=== PATIENT | male | born 1960 | race Caucasian/White ===

== ENCOUNTER 2024-01-22 13:37 | Inpatient (IN) | payer OTHER ==
[~2024-01-22] VITALS: Ht 177.8 cm; Wt 80.3 kg
[2024-01-22 13:39] VITALS: BP_SYST 156; PULSE 76; RESP 17; TEMP 98.1; O2SAT 96
[2024-01-22 14:40] LABS: BASOPHILS # (AUTO) 0.1 K/uL (0.0-0.2); BASOPHILS % (AUTO) 0.7 % (0.0-2.0); EOSINOPHILS # (AUTO) 0.3 K/uL (0.0-0.4); EOSINOPHILS % (AUTO) 2.4 % (0.0-4.0); HEMATOCRIT 30.1 % (36-54); HEMOGLOBIN 10.2 g/dL (14.0-18.0); LYMPHOCYTES # (AUTO) 1.1 K/uL (1.0-5.5); LYMPHOCYTES % (AUTO) 8.1 % (20.5-51.5); MEAN CORPUSCULAR HEMOGLOBIN 34 pg (27-31); MEAN CORPUSCULAR HGB CONC 34 % (32-36); MEAN CORPUSCULAR VOLUME 99 fL (79.0-98.0); MONOCYTES # (AUTO) 1.1 K/uL (0.0-1.0); MONOCYTES % (AUTO) 8.2 % (1.7-9.3); NEUTROPHILS # (AUTO) 10.5 K/uL (1.8-7.7); NEUTROPHILS % (AUTO) 80.6 % (40.0-70.0); PLATELET COUNT (AUTO) 276 K/uL (130-430); RED BLOOD CELL COUNT(AUTO) 3.05 MIL/uL (4.2-6.2); RED CELL DISTRIBUTION WIDTH 15.5 % (9.0-15.0)
[2024-01-22 15:26] LABS: ALANINE AMINOTRANSFERASE 14 U/L (12-78); ALBUMIN 2.7 g/dL (3.4-4.8); ANION GAP 15 (5-15); ASPARTATE AMINOTRANSFERASE 14 U/L (10-37); BILIRUBIN,DIRECT 0.1 mg/dL (0.0-0.3); CALCIUM 8.4 mg/dL (8.4-11.0); CARBON DIOXIDE 24 mmol/L (23-29); CHLORIDE 92 mmol/L (98-107); CREATININE 5.79 mg/dL (0.55-1.30); GFR AFRICAN AMERICAN 13 mL/min (>90); POTASSIUM 3.3 mmol/L (3.5-5.1); SODIUM SERUM 131 mmol/L (136-145); TOTAL BILIRUBIN 0.3 mg/dL (0.0-1.0); TOTAL PROTEIN, SERUM 5.9 g/dL (6.4-8.3); UREA NITROGEN, BLOOD 33 mg/dL (8-21)
[2024-01-22 15:29] LABS: ALCOHOL, BLOOD < 3 mg/dL (<10); GFR NON AFRICAN-AMERICAN 11 mL/min (>90)
[2024-01-22 15:30] LABS: GLUCOSE 516 mg/dL (74-106)
[2024-01-22 15:41] LABS: ACETONE, SERUM NEGATIVE (NEGATIVE)
[2024-01-22] MEDS ORDERED: cefTRIAXone 1 GM VIAL ONE (16:20)
[2024-01-22] MEDS ORDERED: METO10TA8 PO (16:27)
[2024-01-22] MEDS ORDERED: CARV12.548 PO (16:27)
[2024-01-22] MEDS ORDERED: SEMA0.258 SUBCUT (16:27)
[2024-01-22] MEDS ORDERED: SUCR500T PO (16:27)
[2024-01-22] MEDS: cefTRIAXone 1 GM in D5W 50 ML IV ONE (16:30)
[2024-01-22] MEDS: NACL 0.9% 1,000 ML IV ONE (16:31)
[2024-01-22 18:20] VITALS: BP_SYST 183; PULSE 66; RESP 14; TEMP 97.7
[2024-01-22 20:00] VITALS: BP_SYST 173; PULSE 66; PULSE 75; RESP 18; TEMP 97.5; O2SAT 94; O2SAT 99
[2024-01-23] VITALS: BP_SYST 123; PULSE 75; RESP 20; TEMP 98.1
[2024-01-23] MEDS: POTASSIUM CHLORIDE 20 MEQ TABLET.ER PO ONE (00:17)
[2024-01-23] MEDS: INSULIN REGULAR, HUMAN 100 UNITS/ML, 3 ML VIAL (humuLIN R) SUBCUT PRN (00:29)
[2024-01-23 02:10] VITALS: BP_SYST 124; PULSE 74; RESP 19; TEMP 97.3; O2SAT 97
[2024-01-23] MEDS: hydrALAZINE HCL 25 MG TABLET PO PRN (04:19)
[2024-01-23 08:00] VITALS: O2SAT 98
[2024-01-23] MEDS: cefTRIAXone 1 GM in D5W 50 ML IV SCH (16:32)
[2024-01-23 20:00] VITALS: PULSE 71; RESP 19; TEMP 97.6; O2SAT 97
[2024-01-24] VITALS: BP_SYST 131; PULSE 82; RESP 20; TEMP 97.4; O2SAT 98
[2024-01-24 06:02] LABS: BASOPHILS # (AUTO) 0.1 K/uL (0.0-0.2); BASOPHILS % (AUTO) 0.7 % (0.0-2.0); EOSINOPHILS # (AUTO) 0.3 K/uL (0.0-0.4); EOSINOPHILS % (AUTO) 3.3 % (0.0-4.0); HEMOGLOBIN 10.5 g/dL (14.0-18.0); LYMPHOCYTES # (AUTO) 1.7 K/uL (1.0-5.5); MEAN CORPUSCULAR HEMOGLOBIN 32 pg (27-31); MEAN CORPUSCULAR HGB CONC 33 % (32-36); MEAN CORPUSCULAR VOLUME 98 fL (79.0-98.0); MONOCYTES # (AUTO) 0.9 K/uL (0.0-1.0); MONOCYTES % (AUTO) 9.3 % (1.7-9.3); NEUTROPHILS # (AUTO) 6.4 K/uL (1.8-7.7); NEUTROPHILS % (AUTO) 68.7 % (40.0-70.0); PLATELET COUNT (AUTO) 263 K/uL (130-430); RED BLOOD CELL COUNT(AUTO) 3.26 MIL/uL (4.2-6.2); WHITE BLOOD COUNT (AUTO) 9.3 K/uL (4.8-10.8)
[2024-01-24 06:34] LABS: CALCIUM 8.5 mg/dL (8.4-11.0); CREATININE 5.36 mg/dL (0.55-1.30)
[2024-01-24 08:00] VITALS: O2SAT 100
[2024-01-24 08:09] VITALS: BP_SYST 148; PULSE 68; RESP 20; TEMP 97.3; O2SAT 98
[2024-01-24 11:07] VITALS: BP_SYST 126; PULSE 65; RESP 16; TEMP 97.3; O2SAT 100
[2024-01-24 15:08] VITALS: BP_SYST 157; PULSE 69; RESP 16; TEMP 96.9; O2SAT 100
[2024-01-24 20:30] VITALS: BP_SYST 199; PULSE 68; RESP 18; TEMP 98; O2SAT 95
[2024-01-25 00:30] VITALS: BP_SYST 164; PULSE 70; RESP 18; TEMP 98; O2SAT 97
[2024-01-25] MEDS: CARVEDILOL 12.5 MG TABLET (COREG) PO SCH (01:15)
[2024-01-25 06:50] LABS: BASOPHILS # (AUTO) 0.1 K/uL (0.0-0.2); BASOPHILS % (AUTO) 0.6 % (0.0-2.0); EOSINOPHILS # (AUTO) 0.3 K/uL (0.0-0.4); EOSINOPHILS % (AUTO) 3.2 % (0.0-4.0); HEMATOCRIT 32.2 % (36-54); HEMOGLOBIN 10.6 g/dL (14.0-18.0); LYMPHOCYTES # (AUTO) 1.5 K/uL (1.0-5.5); LYMPHOCYTES % (AUTO) 13.9 % (20.5-51.5); MEAN CORPUSCULAR HEMOGLOBIN 33 pg (27-31); MEAN CORPUSCULAR HGB CONC 33 % (32-36); MEAN CORPUSCULAR VOLUME 99 fL (79.0-98.0); MONOCYTES # (AUTO) 1.1 K/uL (0.0-1.0); MONOCYTES % (AUTO) 9.8 % (1.7-9.3); NEUTROPHILS # (AUTO) 7.8 K/uL (1.8-7.7); NEUTROPHILS % (AUTO) 72.5 % (40.0-70.0); PLATELET COUNT (AUTO) 252 K/uL (130-430); RED BLOOD CELL COUNT(AUTO) 3.26 MIL/uL (4.2-6.2); RED CELL DISTRIBUTION WIDTH 15.7 % (9.0-15.0); WHITE BLOOD COUNT (AUTO) 10.7 K/uL (4.8-10.8)
[2024-01-25 07:37] LABS: ANION GAP 14 (5-15); CALCIUM 8.7 mg/dL (8.4-11.0); CARBON DIOXIDE 24 mmol/L (23-29); CHLORIDE 97 mmol/L (98-107); GFR AFRICAN AMERICAN 11 mL/min (>90); GLUCOSE 190 mg/dL (74-106); POTASSIUM 4.3 mmol/L (3.5-5.1); SODIUM SERUM 135 mmol/L (136-145); UREA NITROGEN, BLOOD 46 mg/dL (8-21)
[2024-01-25 08:00] VITALS: BP_SYST 155; PULSE 62; RESP 18; TEMP 97.9; O2SAT 98; O2SAT 99
[2024-01-25 08:06] LABS: GFR NON AFRICAN-AMERICAN 9 mL/min (>90)
[2024-01-25] MEDS ORDERED: NEPH PO (10:44)
[2024-01-25] MEDS ORDERED: CEPH250C PO (10:45)
[2024-01-25] MEDS ORDERED: INSU100V9 SQ (10:47)
[2024-01-25 12:23] VITALS: BP_SYST 163; PULSE 63; RESP 18; TEMP 97.5; O2SAT 100
[2024-01-25 13:00] LABS: BASOPHILS % (AUTO) 0.4 % (0.0-2.0); EOSINOPHILS # (AUTO) 0.3 K/uL (0.0-0.4); EOSINOPHILS % (AUTO) 2.7 % (0.0-4.0); HEMATOCRIT 33.4 % (36-54); HEMOGLOBIN 10.8 g/dL (14.0-18.0); LYMPHOCYTES # (AUTO) 0.8 K/uL (1.0-5.5); LYMPHOCYTES % (AUTO) 6.9 % (20.5-51.5); MEAN CORPUSCULAR HEMOGLOBIN 32 pg (27-31); MEAN CORPUSCULAR HGB CONC 32 % (32-36); MEAN CORPUSCULAR VOLUME 99 fL (79.0-98.0); MONOCYTES % (AUTO) 8.3 % (1.7-9.3); NEUTROPHILS # (AUTO) 9.6 K/uL (1.8-7.7); NEUTROPHILS % (AUTO) 81.7 % (40.0-70.0); PLATELET COUNT (AUTO) 254 K/uL (130-430); RED BLOOD CELL COUNT(AUTO) 3.38 MIL/uL (4.2-6.2); RED CELL DISTRIBUTION WIDTH 15.9 % (9.0-15.0); WHITE BLOOD COUNT (AUTO) 11.7 K/uL (4.8-10.8)
[2024-01-25 13:05] VITALS: BP_SYST 126; PULSE 66; RESP 16; TEMP 98; O2SAT 100
== END 2024-01-25 15:30 | disposition home or self-care (01) | DRG 602 ==
LOC: SED 13:37 → SMU 16:45
PROVIDERS: ADMIT Specialist; ATTEND Specialist
PROC: 5A1D70Z Performance of Urinary Filtration, Intermittent, Less than 6 Hours Per Day (ICD-10-PCS; 2024-01-22)
PROC: 5A1D70Z Performance of Urinary Filtration, Intermittent, Less than 6 Hours Per Day (ICD-10-PCS; principal; 2024-01-25)
DX: L03.114 Cellulitis of left upper limb (principal); N18.6 End stage renal disease; T82.858A Stenosis of other vascular prosthetic devices, implants and grafts, initial encounter; I12.0 Hypertensive chronic kidney disease with stage 5 chronic kidney disease or end stage renal disease; N39.0 Urinary tract infection, site not specified; E11.65 Type 2 diabetes mellitus with hyperglycemia; E11.22 Type 2 diabetes mellitus with diabetic chronic kidney disease; D72.829 Elevated white blood cell count, unspecified; Z99.2 Dependence on renal dialysis; Z79.899 Other long term (current) drug therapy; Z88.8 Allergy status to other drugs, medicaments and biological substances
CPT/HCPCS: 36415; 71045; 80048; 80076; 82009; 82948; 83037; 83605; 84484; 85025; 87040; 87081; 90935; 90937; 93005; 96365; 97116-GP; 97530-GP; 99291; G0482; J0696; J7030; J7050; J7060

== ENCOUNTER 2024-02-03 08:37 | Emergency (ER) | payer OTHER ==
[~2024-02-03] VITALS: Ht 177.8 cm; Wt 80.7 kg
[~2024-02-03 08:37] MED LIST: CARV12.548 PO; CEPH250C PO; INSU100V9 SQ; NEPH PO; SEMA0.258 SUBCUT; SUCR500T PO
[2024-02-03 08:58] VITALS: BP_SYST 184; PULSE 56; RESP 14; TEMP 96.8; O2SAT 96
[2024-02-03] MEDS ORDERED: SEMA0.25 SQ (09:11)
[2024-02-03] MEDS ORDERED: DICL100G59 TP (09:11)
[2024-02-03] MEDS ORDERED: INSU100V SQ (09:11)
[2024-02-03] MEDS ORDERED: [UNRECOGNIZED DRUG - CODE] PO (09:11)
[2024-02-03] MEDS ORDERED: TRAZ50TA54 PO (09:11)
[2024-02-03] MEDS ORDERED: INSU100V9 SQ (09:11)
[2024-02-03] MEDS ORDERED: METO10TA16 PO (09:11)
[2024-02-03] MEDS ORDERED: CINA60TA2 PO (09:11)
[2024-02-03] MEDS ORDERED: SERT-131 PO (09:11)
[2024-02-03] MEDS ORDERED: FURO80TA86 PO (09:11)
[2024-02-03 09:22] LABS: BASOPHILS # (AUTO) 0.1 K/uL (0.0-0.2); BASOPHILS % (AUTO) 0.4 % (0.0-2.0); EOSINOPHILS % (AUTO) 0.3 % (0.0-4.0); HEMATOCRIT 35.6 % (36-54); HEMOGLOBIN 11.4 g/dL (14.0-18.0); LYMPHOCYTES # (AUTO) 1.1 K/uL (1.0-5.5); LYMPHOCYTES % (AUTO) 8.5 % (20.5-51.5); MEAN CORPUSCULAR HEMOGLOBIN 33 pg (27-31); MEAN CORPUSCULAR HGB CONC 32 % (32-36); MEAN CORPUSCULAR VOLUME 102 fL (79.0-98.0); MONOCYTES # (AUTO) 0.8 K/uL (0.0-1.0); MONOCYTES % (AUTO) 6.7 % (1.7-9.3); NEUTROPHILS # (AUTO) 10.7 K/uL (1.8-7.7); NEUTROPHILS % (AUTO) 84.1 % (40.0-70.0); PLATELET COUNT (AUTO) 268 K/uL (130-430); RED BLOOD CELL COUNT(AUTO) 3.48 MIL/uL (4.2-6.2); RED CELL DISTRIBUTION WIDTH 16.7 % (9.0-15.0); WHITE BLOOD COUNT (AUTO) 12.7 K/uL (4.8-10.8)
[2024-02-03] MEDS: DEXTROSE 50% JECT 50 ML DISP.SYRIN IVP ONE (09:23)
[2024-02-03 09:29] LABS: CALCIUM 8.8 mg/dL (8.4-11.0); CREATININE 5.51 mg/dL (0.55-1.30); POTASSIUM 4.8 mmol/L (3.5-5.1)
[2024-02-03] MEDS ORDERED: LABETALOL 100 MG/ 20ML VIAL IVP ONE (10:30)
[2024-02-03] MEDS: hydrALAZINE HCL 20 MG/ML VIAL IVP ONE ×2 (10:48→12:29)
[2024-02-03 12:45] VITALS: BP_SYST 166; PULSE 61; RESP 11; TEMP 97; O2SAT 99
== END 2024-02-03 12:37 ==
LOC: SED 08:37
DX: E11.649 Type 2 diabetes mellitus with hypoglycemia without coma (principal); D72.829 Elevated white blood cell count, unspecified; E11.22 Type 2 diabetes mellitus with diabetic chronic kidney disease; I12.0 Hypertensive chronic kidney disease with stage 5 chronic kidney disease or end stage renal disease; N18.6 End stage renal disease; Z88.6 Allergy status to analgesic agent; Z91.018 Allergy to other foods; Z79.899 Other long term (current) drug therapy; Z79.2 Long term (current) use of antibiotics
CPT/HCPCS: 99283; 96374; 96375; 80048; 85025; 36415; 96376; 82948; J0360; J3490

== ENCOUNTER 2024-02-17 09:00 | Emergency (ER) | payer OTHER ==
[~2024-02-17] VITALS: Ht 177.8 cm; Wt 99.8 kg
[2024-02-17 09:00] VITALS: BP_SYST 192; PULSE 57; RESP 19; TEMP 96; O2SAT 97
[~2024-02-17 09:00] MED LIST changes: +CINA60TA2 PO; +DICL100G59 TP; +FURO80TA86 PO; +INSU100V SQ; +METO10TA16 PO; +SEMA0.25 SQ; +SERT-131 PO; +TRAZ50TA54 PO; +[UNRECOGNIZED DRUG - CODE] PO
[2024-02-17] MEDS ORDERED: VIS25 PO (09:29)
[2024-02-17] MEDS ORDERED: DEXT1TAB48 PO (09:29)
[2024-02-17] MEDS ORDERED: INSU100V44 (09:29)
[2024-02-17] MEDS ORDERED: RENAVITE PEG (09:29)
[2024-02-17] MEDS: DEXTROSE 50% JECT 50 ML DISP.SYRIN IVP ONE (10:10)
[2024-02-17 10:34] LABS: BASOPHILS # (AUTO) 0.1 K/uL (0.0-0.2); BASOPHILS % (AUTO) 0.5 % (0.0-2.0); EOSINOPHILS # (AUTO) 0.1 K/uL (0.0-0.4); EOSINOPHILS % (AUTO) 0.4 % (0.0-4.0); HEMATOCRIT 40.3 % (36-54); HEMOGLOBIN 13.1 g/dL (14.0-18.0); LYMPHOCYTES # (AUTO) 0.5 K/uL (1.0-5.5); LYMPHOCYTES % (AUTO) 3.1 % (20.5-51.5); MEAN CORPUSCULAR HEMOGLOBIN 33 pg (27-31); MEAN CORPUSCULAR HGB CONC 33 % (32-36); MEAN CORPUSCULAR VOLUME 100 fL (79.0-98.0); MONOCYTES # (AUTO) 1.1 K/uL (0.0-1.0); MONOCYTES % (AUTO) 6.6 % (1.7-9.3); NEUTROPHILS # (AUTO) 14.4 K/uL (1.8-7.7); NEUTROPHILS % (AUTO) 89.4 % (40.0-70.0); PLATELET COUNT (AUTO) 207 K/uL (130-430); RED BLOOD CELL COUNT(AUTO) 4.04 MIL/uL (4.2-6.2); RED CELL DISTRIBUTION WIDTH 15.6 % (9.0-15.0); WHITE BLOOD COUNT (AUTO) 16.1 K/uL (4.8-10.8)
[2024-02-17 10:52] LABS: INR 1.1 (0.80-1.20); PROTHROMBIN TIME 11.4 SECS (9.5-12.5)
[2024-02-17 10:56] LABS: ANION GAP 13 (5-15); CALCIUM 8.6 mg/dL (8.4-11.0); CARBON DIOXIDE 28 mmol/L (23-29); CHLORIDE 99 mmol/L (98-107); CREATININE 5.79 mg/dL (0.55-1.30); GFR AFRICAN AMERICAN 13 mL/min (>90); GLUCOSE 194 mg/dL (74-106); POTASSIUM 3.9 mmol/L (3.5-5.1); SODIUM SERUM 140 mmol/L (136-145); UREA NITROGEN, BLOOD 35 mg/dL (8-21)
[2024-02-17 11:19] LABS: GFR NON AFRICAN-AMERICAN 11 mL/min (>90)
[2024-02-17 12:35] VITALS: BP_SYST 168; PULSE 58; RESP 20; TEMP 96.7; O2SAT 97
== END 2024-02-17 12:46 ==
LOC: SED 09:00
DX: E10.649 Type 1 diabetes mellitus with hypoglycemia without coma (principal); R41.82 Altered mental status, unspecified; I13.2 Hypertensive heart and chronic kidney disease with heart failure and with stage 5 chronic kidney disease, or end stage renal disease; E10.22 Type 1 diabetes mellitus with diabetic chronic kidney disease; I50.9 Heart failure, unspecified; N18.6 End stage renal disease; F32.A Depression, unspecified; G89.29 Other chronic pain; Z20.822 Contact with and (suspected) exposure to COVID-19; Z99.2 Dependence on renal dialysis; Z79.4 Long term (current) use of insulin; Z79.899 Other long term (current) drug therapy; Z88.5 Allergy status to narcotic agent
CPT/HCPCS: 36415; 71045; 80048; 82948; 83880; 84484; 85025; 85610; 85730; 93005; 96374; 99291

== ENCOUNTER 2024-02-20 21:13 | Emergency (ER) | payer OTHER ==
[~2024-02-20] VITALS: Ht 177.8 cm; Wt 77.1 kg
[~2024-02-20 21:13] MED LIST changes: -CEPH250C PO; +DEXT1TAB48 PO; -INSU100V SQ; +INSU100V44; -NEPH PO; +RENAVITE PEG; -SEMA0.25 SQ; -SEMA0.258 SUBCUT; -SUCR500T PO; +VIS25 PO
[2024-02-20 21:33] VITALS: BP_SYST 152; PULSE 62; RESP 18; TEMP 98.1; O2SAT 98
[2024-02-20 22:05] LABS: BASOPHILS # (AUTO) 0.1 K/uL (0.0-0.2); BASOPHILS % (AUTO) 0.8 % (0.0-2.0); EOSINOPHILS # (AUTO) 0.3 K/uL (0.0-0.4); EOSINOPHILS % (AUTO) 3.3 % (0.0-4.0); HEMATOCRIT 32.6 % (36-54); LYMPHOCYTES # (AUTO) 1.5 K/uL (1.0-5.5); LYMPHOCYTES % (AUTO) 15.8 % (20.5-51.5); MEAN CORPUSCULAR HEMOGLOBIN 34 pg (27-31); MEAN CORPUSCULAR HGB CONC 34 % (32-36); MEAN CORPUSCULAR VOLUME 100 fL (79.0-98.0); MONOCYTES # (AUTO) 1.1 K/uL (0.0-1.0); MONOCYTES % (AUTO) 11.6 % (1.7-9.3); NEUTROPHILS # (AUTO) 6.5 K/uL (1.8-7.7); NEUTROPHILS % (AUTO) 68.5 % (40.0-70.0); PLATELET COUNT (AUTO) 186 K/uL (130-430); RED BLOOD CELL COUNT(AUTO) 3.28 MIL/uL (4.2-6.2); RED CELL DISTRIBUTION WIDTH 15.3 % (9.0-15.0); WHITE BLOOD COUNT (AUTO) 9.5 K/uL (4.8-10.8)
[2024-02-20 22:29] LABS: ALANINE AMINOTRANSFERASE 39 U/L (12-78); ALBUMIN 3.1 g/dL (3.4-4.8); ANION GAP 6 (5-15); ASPARTATE AMINOTRANSFERASE 20 U/L (10-37); BILIRUBIN,DIRECT 0.1 mg/dL (0.0-0.3); CALCIUM 9.3 mg/dL (8.4-11.0); CARBON DIOXIDE 32 mmol/L (23-29); CHLORIDE 98 mmol/L (98-107); CREATININE 4.89 mg/dL (0.55-1.30); GFR AFRICAN AMERICAN 15 mL/min (>90); POTASSIUM 4.9 mmol/L (3.5-5.1); SODIUM SERUM 136 mmol/L (136-145); TOTAL BILIRUBIN 0.3 mg/dL (0.0-1.0); TOTAL PROTEIN, SERUM 6.1 g/dL (6.4-8.3); UREA NITROGEN, BLOOD 38 mg/dL (8-21)
[2024-02-20 22:30] LABS: GFR NON AFRICAN-AMERICAN 13 mL/min (>90)
[2024-02-20 22:32] LABS: GLUCOSE 460 mg/dL (74-106)
[2024-02-20 23:27] LABS: BILIRUBIN,URINE NEGATIVE (NEGATIVE); CLARITY/URINE CLEAR (CLEAR); COLOR,URINE YELLOW (YELLOW); GLUCOSE,URINE 3+ (NEGATIVE); KETONES,URINE NEGATIVE (NEGATIVE); LEUKOCYTE ESTERASE ,URINE NEGATIVE (NEGATIVE); NITRITE, URINE NEGATIVE (NEGATIVE); PROTEIN URINE 3+ (NEGATIVE); UROBILINOGEN,URINE 0.2 (0.2-1.0)
[2024-02-20 23:34] LABS: BLOOD, URINE TRACE (NEGATIVE)
[2024-02-20] MEDS ORDERED: INSULIN REGULAR, HUMAN 10 UNITS/0.1 ML, 3 ML VIAL IVP ONE (23:45)
[2024-02-20 23:51] LABS: BACTERIA,URINE None Seen /HPF (None Seen)
[2024-02-21] MEDS: INSULIN REGULAR, HUMAN 10 UNITS/0.1 ML, 3 ML VIAL IVP ONE (00:05)
[2024-02-21] MEDS: cloNIDine HCL 0.1 MG TABLET PO ONE (02:45)
[2024-02-21 03:50] VITALS: BP_SYST 140; PULSE 77; RESP 16; TEMP 98; O2SAT 98
== END 2024-02-21 03:50 | disposition home or self-care (01) ==
LOC: SED 21:13
DX: E11.65 Type 2 diabetes mellitus with hyperglycemia (principal); E11.22 Type 2 diabetes mellitus with diabetic chronic kidney disease; I12.0 Hypertensive chronic kidney disease with stage 5 chronic kidney disease or end stage renal disease; N18.6 End stage renal disease; Z88.5 Allergy status to narcotic agent; Z79.4 Long term (current) use of insulin; Z79.899 Other long term (current) drug therapy
CPT/HCPCS: 36415; 71045; 80048; 80076; 81000; 81001; 81015; 84484; 85025; 96374; 99283; 99285; J1815